=== PATIENT | female | born 1995 | race Caucasian/White ===

== ENCOUNTER 2020-10-24 21:52 | Emergency (ER) | payer MEDICAID ==
[~2020-10-24] VITALS: Ht 157.5 cm; Wt 95.7 kg
[2020-10-24 22:10] VITALS: Ht 157.5 cm; Wt 95.7 kg
[2020-10-24 23:00] VITALS: BP 111/65
== END 2020-10-24 23:00 | disposition home or self-care (01) ==
LOC: ED 21:52
DX: M54.41 Lumbago with sciatica, right side (principal)